=== PATIENT | female | born 1930 | race Caucasian/White ===

== ENCOUNTER 2019-06-20 06:58 | Day surgery (SDC) | payer OTHER, BC ==
[2019-06-19 10:36] VITALS: BMI 14.8
[2019-06-20 08:27] VITALS: TEMP 97.7
[2019-06-20 11:19] VITALS: BP 100/51; PULSE 65
--- NOTE | 2019-06-21 16:27 | PATH ---
Surgical Pathology Report Patient Name: COLT HOLCOMB [facility]. Rec. #: [id number] /Age/Gender: 1930 (Age: 88) / F Account: [id number] Location: U-ENDOSCOPY Taken: 06/20/2019 Received: 06/20/2019 Reported: 06/21/2019 Physicians: Nancy Esqueda M.D. Specimen(s) Received A: BX DUODENUM B: STOMACH C: BX ESOPHAGUS Clinical History Weight loss, dysphagia Postoperative diagnosis: Esophagitis, gastritis Final Diagnosis A. DUODENUM, BIOPSY: DUODENAL MUCOSA WITH NO SIGNIFICANT PATHOLOGIC CHANGE. NO HISTOLOGIC EVIDENCE OF INTRAEPITHELIAL LYMPHOCYTOSIS. B. STOMACH, BIOPSY: GASTRIC MUCOSA WITH MODERATELY CHRONIC GASTRITIS. IMMUNOSTAIN FOR H. PYLORI IS NEGATIVE. NEGATIVE FOR INTESTINAL METAPLASIA. C. ESOPHAGUS, BIOPSY: ESOPHAGEAL (SQUAMOUS) MUCOSA WITH REFLUX ESOPHAGITIS. Electronically Signed Armond Solomon M.D. Gross Description A. Received in formalin, labeled "duodenum biopsy" are 4 salmon, irregular portions of soft tissue ranging from 0.2-0.3 cm. in greatest dimension. The specimens are submitted in toto in one cassette. B. Received in formalin, labeled "stomach biopsy" are 4 salmon, irregular portions of soft tissue ranging from 0.1-0.9 cm. in greatest dimension. The specimens are submitted in toto in one cassette. C. Received in formalin, labeled "esophagus biopsy" are 2 salmon, irregular portions of soft tissue measuring 0.1 and 0.3 cm. in greatest dimension. The specimens are submitted in toto in one cassette. /06/20/2019 saudi/06/20/2019
== END 2019-06-20 09:45 | disposition home or self-care (01) ==
LOC: JASU-ENDO 06:58
PROVIDERS: ATTEND Internal Medicine Gastroenterology
PROC: 0DB68ZX Excision of Stomach, Via Natural or Artificial Opening Endoscopic, Diagnostic (ICD-10-PCS; 2019-06-20)
PROC: 0DB58ZX Excision of Esophagus, Via Natural or Artificial Opening Endoscopic, Diagnostic (ICD-10-PCS; 2019-06-20)
PROC: 0DB98ZX Excision of Duodenum, Via Natural or Artificial Opening Endoscopic, Diagnostic (ICD-10-PCS; principal; 2019-06-20 08:00)
DX: R10.13 Epigastric pain (principal); K21.0 Gastro-esophageal reflux disease with esophagitis; K29.50 Unspecified chronic gastritis without bleeding